=== PATIENT | female | born 1935 | race Caucasian/White ===

== ENCOUNTER 2017-02-11 11:48 | Emergency (ER) | payer MEDICARE, OTHER, BC ==
[~2017-02-11] VITALS: Ht 157.5 cm; Wt 79.5 kg
[~2017-02-11 11:48] MED LIST: ACYC800T PO; ASPI325T PO; ATEN1TAB75 PO; ATOR10 PO; CALCTAB32 PO; FLUR30CA12 PO; FOSA70TA PO; IRBE150T49 PO; OCUVTAB4 PO; TOBR3.5O LEFT EYE; VITA200017 PO; [UNRECOGNIZED DRUG - CODE] PO; [UNRECOGNIZED DRUG - OTHER] PO
[2017-02-11 12:07] VITALS: PULSE 74; RESP 18; O2SAT 96
--- NOTE | 2017-02-11 12:14 | PD ---
HPI Chief Complaint: Fall Time Seen by Provider: 12:14 Travel History International Travel<30 days: No Contact w/Intl Traveler<30days: No Traveled to known affect area: No History of Present Illness HPI 81-year-old female with history of CAD, hypertension, recurrent UTI, bilateral knee joint replacement, anxiety, depression, CVA, right sided facial twitch, presents to emergency department for evaluation following a slip and fall in the bathtub that occurred last evening. She had also had a trip and fall out of the car 2 days ago. She reports significant neck pain and states that her body overall aches. She has been ambulatory and is supposed inability with a walker however she refuses to do this most of the time. Patient did strike her head in the bathtub but did not lose consciousness. Her son was in the home and assisted her up. She reports abdominal pain as well as right sided chest pain, exacerbated with movement and deep inspiration. She also reports a thoracic spine pain exacerbated by movement. Pain is a constant, exacerbated with movement or palpation, 6 out of 10. No nausea or vomiting. No acute focal deficits or weakness. No other symptoms to report. PFSH Past Medical History Hx Anticoagulant Therapy: No Anxiety: Yes Depression: Yes Heart Rhythm Problems: Yes Cancer: Yes (L BREAST) Cardiovascular Problems: Yes High Cholesterol: Yes Chemotherapy: Yes Chest Pain: Yes Cerebrovascular Accident: Yes Diabetes: No Diminished Hearing: No Endocrine: No Gastrointestinal Disorders: Yes Genitourinary: Yes Hypertension: Yes Immune Disorder: No Implanted Vascular Access Dvce: Yes Musculoskeletal: No Neurologic: No Psychiatric: Yes Reproductive: No Respiratory: No Immunizations Current: Yes Radiation Therapy: Yes Ulcer: Yes Tetanus Vaccination: Unknown Menopausal: Yes Past Surgical History Cardiac Surgery: Yes (CYST REMOVED FROM [facility]) Gynecologic Surgery: Yes (SEMI MASTECTOMY LEFT) Hysterectomy: Yes Joint Replacement: Yes (BILATERAL KNEE, RIGHT HIP ) Neurologic Surgery: Yes (TWICHING LEFT SIDE OF FACE TREATED WITH BOTOX 2006) Other Surgery: Yes (L LUMPECTOMY, CYST REMOVED FROM [facility].) Social History Alcohol Use: Yes (OCC) Tobacco Use: No (QUIT DECADES AGO) Substance Use: No Allergies-Medications (Allergen,Severity, Reaction): Coded Allergies: No Known Allergies (Verified , 02/11/17) Reported Meds & Prescriptions Reported Meds & Active Scripts Active Percocet (Oxycodone-Acetaminophen) 5-325 mg Tab 0.5-1 Tab PO Q6H PRN Reported Tobradex Opht Oint (Tobramycin/Dexamethasone) 3.5 Applic/3.5 Gm Oint 1 Applic LEFT EYE HS Lipitor 10 mg tab (Atorvastatin) 10 Mg Tab 10 Mg PO HS Acyclovir 800 mg (Acyclovir) 800 Mg Tab 800 Mg PO DAILY [place] 30 mg (Flurazepam HCl) 30 Mg Cap 30 Mg PO HS Vitamin D3 Super Strength (Cholecalciferol) 2,000 Unit Tab 2,000 Unit PO DAILY [Blueberry Supplement] 1 Tab PO DAILY Aspirin 325 mg (Aspirin) 325 Mg Tab 325 Mg PO DAILY Moises Multivitamin For Wom (Multiple Vitamins W/ Minerals) Tab 1 Tab PO DAILY Fosamax (Alendronate Sodium) 70 Mg Tab 70 Mg PO WEEKLY WEEKLY ON MONDAYS Preservision Areds (Multivitamins/Minerals) Areds Tab 1 Tab PO DAILY Calcium Citrate + D (Calcium Citrate-Vitamin D) + D Tab 1 Tab PO BID Avapro (Irbesartan) 150 Mg Tab 150 Mg PO HS Tenormin (Atenolol) 100 Mg Tab 100 Mg PO HS Review of Systems Except as stated in HPI: all other systems reviewed are Neg Physical Exam Narrative GENERAL: Well-nourished female patient, very pleasant, sitting in bed, in no acute distress SKIN: Focused skin assessment warm/dry. Ecchymosis over the posterior neck. There is a skin tear on the right forearm, abrasion over the left forearm HEAD: Atraumatic. Normocephalic. EYES: Pupils equal and round. Cataract over the left eye. No scleral icterus. No injection or drainage. Patient does have left eye twitching. ENT: No nasal bleeding or discharge. Mucous membranes pink and moist. NECK: Trachea midline. No JVD. CARDIOVASCULAR: Regular rate and rhythm. 2/6 murmur appreciated. RESPIRATORY: No accessory muscle use. Clear to auscultation. Breath sounds equal bilaterally. No tenderness. Palpation of the thoracic cage. No crepitus. Even respirations. GASTROINTESTINAL: Abdomen soft, nondistended. Tenderness. Palpation of the right upper quadrant and left lower quadrant.. Hepatic and splenic margins not palpable. MUSCULOSKELETAL: No obvious deformities. No clubbing. No cyanosis. No edema. He can move all extremities without difficulty. No deformity. Distal pulses are palpable. NEUROLOGICAL: Awake and alert. No obvious cranial nerve deficits. Motor grossly within normal limits. Normal speech. PSYCHIATRIC: Appropriate mood and affect; insight and judgment normal. Data Data Last Documented VS Vital Signs Date Time Temp Pulse Resp B/P Pulse Ox O2 Delivery O2 Flow Rate FiO2 02/11/17 16:39 68 16 163/66 96 02/11/17 12:16 Room Air Orders Basic Metabolic Panel (Bmp) (02/11/17 12:12) Complete Blood Count With Diff (02/11/17 12:12) Prothrombin Time / Inr (Pt) (02/11/17 12:12) Act Partial Throm Time (Ptt) (02/11/17 12:12) Urinalysis - C+S If Indicated (02/11/17 12:12) Chest, Single Ap (02/11/17 12:12) Ct Brain W/O Iv Contrast(Rout) (02/11/17 12:12) Ct Cerv Spine W/O Contrast (02/11/17 12:12) Ct Abd/Pel W Iv Contrast(Rout) (02/11/17 12:12) Ct Thor Spine W/O Contrast (02/11/17 12:12) Electrocardiogram (02/11/17 12:12) Apply Cervical Collar (02/11/17 12:12) Iv Access Insert/Monitor (02/11/17 12:12) Ecg Monitoring (02/11/17 12:12) Oximetry (02/11/17 12:12) Morphine Inj (Morphine Inj) (02/11/17 14:30) Ondansetron Inj (Zofran Inj) (02/11/17 14:30) Iohexol 350 Inj (Omnipaque 350 Inj) (02/11/17 15:11) Collar [place] (02/11/17 ) Labs Laboratory Tests Test 02/11/17 02/11/17 12:20 15:30 White Blood Count 10.6 TH/MM3 Red Blood Count 3.69 MIL/MM3 Hemoglobin 12.4 GM/DL Hematocrit 35.7 % Mean Corpuscular Volume 96.6 FL Mean Corpuscular Hemoglobin 33.5 PG Mean Corpuscular Hemoglobin 34.6 % Concent Red Cell Distribution Width 13.3 % Platelet Count 190 TH/MM3 Mean Platelet Volume 9.3 FL Neutrophils (%) (Auto) 75.6 % Lymphocytes (%) (Auto) 15.0 % Monocytes (%) (Auto) 7.6 % Eosinophils (%) (Auto) 1.0 % Basophils (%) (Auto) 0.8 % Neutrophils # (Auto) 8.0 TH/MM3 Lymphocytes # (Auto) 1.6 TH/MM3 Monocytes # (Auto) 0.8 TH/MM3 Eosinophils # (Auto) 0.1 TH/MM3 Basophils # (Auto) 0.1 TH/MM3 CBC Comment DIFF FINAL Differential Comment Prothrombin Time 10.5 SEC Prothromb Time International 1.0 RATIO Ratio Activated Partial 26.4 SEC Thromboplast Time Sodium Level 134 MEQ/L Potassium Level 4.5 MEQ/L Chloride Level 99 MEQ/L Carbon Dioxide Level 26.5 MEQ/L Anion Gap 9 MEQ/L Blood Urea Nitrogen 21 MG/DL Creatinine 1.04 MG/DL Estimat Glomerular Filtration 51 ML/MIN Rate Random Glucose 110 MG/DL Calcium Level 9.2 MG/DL Urine Color LIGHT-YELLOW Urine Turbidity CLEAR Urine pH 7.0 Urine Specific [place] 1.006 Urine Protein NEG mg/dL Urine Glucose (UA) NEG mg/dL Urine Ketones NEG mg/dL Urine Occult Blood NEG Urine Nitrite NEG Urine Bilirubin NEG Urine Urobilinogen LESS THAN 2.0 MG/DL Urine Leukocyte Esterase TRACE Urine WBC 1 /hpf Urine Bacteria RARE /hpf Microscopic Urinalysis Comment CULT NOT INDICATED MDM Medical Decision Making Medical Screen Exam Complete: Yes Emergency Medical Condition: Yes Medical Record Reviewed: Yes Differential Diagnosis Contusion versus fracture versus intracranial hemorrhage versus visceral injury Narrative Course 81 year-old female presents to the emergency department for evaluation following a fall that occurred last night. This was a slip and fall in the shower. Patient appears without distress. She does have ecchymosis of her skull on his posterior neck. Tenderness with palpation cervical spine. Cervical collar is placed. Patient has no other focal deficits or weakness. CT imaging is ordered CBC is without acute concern. BMP is without acute concern. Urinalysis is unremarkable. 1425 Pt has been in ED now 2 hours and 21 minutes; CTs are still not complete. I have contacted CT and they state when they are finished with what they are currently doing, they will "see where they are at." Last Impressions Thoracic Spine CT 02/11/17 1212 Signed Impressions: Service Date/Time: Saturday, February 11, 2017 14:58 - CONCLUSION: 1. Moderate thoracic kyphosis with moderate to severe degenerative disc disease. No acute fracture or spondylolisthesis. No significant bony canal stenosis. Eliud Marie MD Head CT 02/11/172 Signed Impressions: Service Date/Time: Saturday, February 11, 2017 14:58 - CONCLUSION: Normal examination for a patient of this age. No significant change has occurred. Eliud Marie MD Chest X-Ray 02/11/171211 Signed Impressions: Service Date/Time: Saturday, February 11, 2017 12:15 - CONCLUSION: 1. Linear atelectasis or scarring at the left lung base. No pneumothorax. Eliud Marie MD Cervical Spine CT 02/11/171211 Signed Impressions: Service Date/Time: Saturday, February 11, 2017 14:58 - CONCLUSION: 1. No acute findings. Moderate degenerative disc disease and mild facet arthropathy in the cervical spine. Eliud Marie MD Abdomen/Pelvis CT 02/11/171211 Signed Impressions: Service Date/Time: Saturday, February 11, 2017 14:58 - CONCLUSION: 1. Small left pleural effusion. No acute findings within the abdomen or pelvis. Fatty liver. Colonic diverticula. Previous right hip replacement. Eliud Marie MD Left findings and radiologic findings are discussed with the patient and her family. They're comfortable calling Dr. Calles for follow-up this week. Patient is encouraged to utilize her walker with ambulation and she verbalizes understanding. Patient will be discharged at this time. Diagnosis Primary Impression: Cervical strain, acute Qualified Code: S16.1XXA - Cervical strain, acute, initial encounter Additional Impressions: Rib contusion Qualified Code: S20.219A - Rib contusion, unspecified laterality, initial encounter Abrasion forearm Strain of thoracic spine Qualified Code: S29.019A - Strain of thoracic spine, initial encounter Contusion Qualified Code: S00.03XA - Contusion of scalp, initial encounter Minor head injury without loss of consciousness Qualified Code: S09.90XA - Minor head injury without loss of consciousness, initial encounter Referrals: Primary Care Physician Patient Instructions: Cervical Neck Strain Exercises (GEN), General Instructions, Head Injury (ED), Thoracic Back Strain (ED) Additional Instructions: Ice and/or warm moist heat may help to alleviate symptoms Make sure to use or walker with ambulation No prolonged bedrest Contact her primary care provider and follow up with him this week Stool softener is recommended with narcotic pain control to reduce risk of constipation Return immediately to the emergency department with any acute worsening of symptoms Med/Other Pt SpecificInfo: Prescription(s) given Scripts Oxycodone-Acetaminophen (Percocet)5-325 mg Tab0.5-1 Tab PO Q6H PRN (PAIN GREATER THAN 5) #12 TAB Ref 0 Prov:Sabina Nair 02/11/17 Disposition: 01 DISCHARGE HOME Condition: Stable Sabina Nair Feb 11, 2017 12:14
[2017-02-11 12:16] VITALS: PULSE 80; O2SAT 98
[2017-02-11 12:39] LABS: BASOPHIL # 0.1 TH/MM3 (0-0.2); BASOPHIL % 0.8 % (0.0-2.0); EOSINOPHIL # 0.1 TH/MM3 (0-0.4); HEMATOCRIT 35.7 % (35.0-46.0); HEMO FLAGS DIFF FINAL; LYMPHOCYTE # 1.6 TH/MM3 (1.0-4.8); MEAN CELL VOLUME 96.6 FL (80.0-100.0); MEAN CORPUSCULAR HEMOGLOBIN 33.5 PG (27.0-34.0); MEAN CORPUSCULAR HGB CONC 34.6 % (32.0-36.0); MONO % 7.6 % (0.0-8.0); NEUT % 75.6 % (16.0-70.0); PLATELET COUNT 190 TH/MM3 (150-450); RED BLOOD COUNT 3.69 MIL/MM3 (4.00-5.30); RED CELL DISTRIBUTION WIDTH 13.3 % (11.6-17.2); WHITE BLOOD COUNT 10.6 TH/MM3 (4.0-11.0)
--- NOTE | 2017-02-11 12:40 | RADRPT ---
EXAM DATE/TIME: 02/11/2017 12:15 [facility] COMPARISON: CHEST PA & LAT, May 25, 2015, 10:35. INDICATIONS : Trauma, fall, neck and chest pain MEDICAL HISTORY : breast Ca SURGICAL HISTORY : Mastectomy, left ENCOUNTER: Initial ACUITY: 1 day PAIN SCORE: 2/10 LOCATION: Bilateral chest FINDINGS: There is linear atelectasis or scarring at the left lung base. No effusion. No pneumothorax. Heart si ze within normal limits. Tortuous aorta. Advanced osteoarthritis of the shoulders. Previous left clav icle fracture. CONCLUSION: 1. Linear atelectasis or scarring at the left lung base. No pneumothorax. Eliud Marie MD on February 11, 2017 at 12:36 Board Certified Radiologist. This report was verified electronically.
[2017-02-11 12:55] LABS: PROTHROMBIN TIME - PATIENT 10.5 SEC (9.8-11.6)
[2017-02-11 12:56] LABS: APTT (PATIENT) 26.4 SEC (24.3-30.1)
[2017-02-11 12:59] LABS: BICARBONATE 26.5 MEQ/L (21.0-32.0)
[2017-02-11 13:00] LABS: POTASSIUM 4.5 MEQ/L (3.5-5.1)
[2017-02-11] MEDS ORDERED: ONDANSETRON HCL 4 MG/2 ML VIAL IV PUSH ONE (14:30)
[2017-02-11] MEDS ORDERED: MORPHINE SULFATE 4 MG/ML INJ IV PUSH ONE (14:30)
[2017-02-11] MEDS ORDERED: IOHEXOL 350 MG/ML 10 ML VIAL (for RAD DIAG) IV ONE (15:11)
--- NOTE | 2017-02-11 15:25 | RADRPT ---
EXAM DATE/TIME: 02/11/2017 14:58 [facility] COMPARISON: CT BRAIN W/O CONTRAST, October 13, 2010, 16:37. INDICATIONS : Fall in bathtub,confusion unable to ambulate well since, pain uper back and right ribs RADIATION DOSE: 48.90 CTDIvol (mGy) MEDICAL HISTORY : Cardiovascular disease. Cerebrovascular disease. Hypertension.Left breast ca. chemo and rad therapy. SURGICAL HISTORY : None. ENCOUNTER: Initial ACUITY: 1 day PAIN SCALE: 0/10 LOCATION: cranial TECHNIQUE: Multiple contiguous axial images were obtained of the head. Using automated exposure control and adj ustment of the mA and/or kV according to patient size, radiation dose was kept as low as reasonably a chievable to obtain optimal diagnostic quality images. DICOM format image data is available electro nically for review and comparison. FINDINGS: CEREBRUM: The ventricles are normal for age. No evidence of midline shift, mass lesion, hemorrhage or acute in farction. No extra-axial fluid collections are seen. POSTERIOR FOSSA: The cerebellum and brainstem are intact. The 4th ventricle is midline. The cerebellopontine angle i s unremarkable. EXTRACRANIAL: The visualized portion of the orbits is intact. SKULL: The calvaria is intact. No evidence of skull fracture. CONCLUSION: Normal examination for a patient of this age. No significant change has occurred. Eliud Marie MD on February 11, 2017 at 15:22 Board Certified Radiologist. This report was verified electronically.
--- NOTE | 2017-02-11 15:28 | RADRPT ---
EXAM DATE/TIME: 02/11/2017 14:58 [facility] COMPARISON: No previous studies available for comparison. INDICATIONS : Fell in bath tub, confusion, loss of ability to walk, right rib pain. RADIATION DOSE: 21.44 CTDIvol (mGy) MEDICAL HISTORY : Cerebrovascular disease. Cerebrovascular disease. Ca breast with chemo and rad therapy. SURGICAL HISTORY : Hysterectomy. ENCOUNTER: Initial ACUITY: 1 day PAIN SCALE: 0/10 LOCATION: Bilateral neck TECHNIQUE: Volumetric scanning of the cervical spine was performed. Multiplanar reconstructions in the sagittal, coronal and oblique axial planes were performed. Using automated exposure control and adjustment o f the mA and/or kV according to patient size, radiation dose was kept as low as reasonably achievable to obtain optimal diagnostic quality images. DICOM format image data is available electronically f or review and comparison. FINDINGS: VERTEBRAE: Normal vertebral body height. ALIGNMENT: No evidence of subluxation. C2-C3: The bony spinal canal is normal in size. No evidence of disc bulge or herniation. The neural forami na are bilaterally patent. C3-C4: The bony spinal canal is normal in size. No evidence of disc bulge or herniation. The neural forami na are bilaterally patent. C4-C5: The bony spinal canal is normal in size. No evidence of disc bulge or herniation. The neural forami na are bilaterally patent. C5-C6: The bony spinal canal is normal in size. No evidence of disc bulge or herniation. The neural forami na are bilaterally patent. C6-C7: The bony spinal canal is normal in size. No evidence of disc bulge or herniation. The neural forami na are bilaterally patent. C7-T1: The bony spinal canal is normal in size. No evidence of disc bulge or herniation. The neural forami na are bilaterally patent. CONCLUSION: 1. No acute findings. Moderate degenerative disc disease and mild facet arthropathy in the cervical s pine. Eliud Marie MD on February 11, 2017 at 15:23 Board Certified Radiologist. This report was verified electronically.
--- NOTE | 2017-02-11 15:32 | RADRPT ---
EXAM DATE/TIME: 02/11/2017 14:58 [facility] COMPARISON: No previous studies available for comparison. INDICATIONS : Fall in bath tub, confusion, loss of ability to walk, right rib pain. IV CONTRAST: 100 cc Omnipaque 350 (iohexol) IV ORAL CONTRAST: No oral contrast ingested. RADIATION DOSE: 12.45 CTDIvol (mGy) MEDICAL HISTORY : Cardiovascular disease. Cerebrovascular disease. Hypertension.ca breast with chemo and rad therapy. SURGICAL HISTORY : Hysterectomy. ENCOUNTER: Initial ACUITY: 1 day PAIN SCALE: 6/10 LOCATION: Right lower chest TECHNIQUE: Volumetric scanning of the abdomen and pelvis was performed. Using automated exposure control and ad justment of the mA and/or kV according to patient size, radiation dose was kept as low as reasonably achievable to obtain optimal diagnostic quality images. DICOM format image data is available electro nically for review and comparison. FINDINGS: There is a small left-sided pleural effusion. Minimal basilar atelectasis or scarring. Mild fatty liver. Spleen, adrenals, kidneys and pancreas unremarkable. No gallstones or biliary ducta l dilatation identified. There are scattered colonic diverticula without evidence for diverticulitis. There is previous right hip replacement. No bowel obstruction free fluid or free air. Previous hysterectomy. CONCLUSION: 1. Small left pleural effusion. No acute findings within the abdomen or pelvis. Fatty liver. Colonic diverticula. Previous right hip replacement. Eliud Maire MD on February 11, 2017 at 15:25 Board Certified Radiologist. This report was verified electronically.
[2017-02-11 15:53] VITALS: BP 145/67; PULSE 66; RESP 18; O2SAT 94
--- NOTE | 2017-02-11 15:59 | RADRPT ---
EXAM DATE/TIME: 02/11/2017 14:58 [facility] COMPARISON: No previous studies available for comparison. INDICATIONS : Fall in bath tub, confused, loss of ability to ambulate, right rib pain. RADIATION DOSE: 16.80 CTDIvol (mGy) MEDICAL HISTORY : Cardiovascular disease. Cerebrovascular disease. Hypertension.ca breast with chemo, and rad therapy. SURGICAL HISTORY : Hysterectomy. ENCOUNTER: Initial ACUITY: 1 day PAIN SCALE: 6/10 LOCATION: Right upper back TECHNIQUE: Volumetric scanning of the thoracic spine was performed. Multiplanar reconstructions in the sagittal , coronal and oblique axial planes were performed. Using automated exposure control and adjustment o f the mA and/or kV according to patient size, radiation dose was kept as low as reasonably achievable to obtain optimal diagnostic quality images. DICOM format image data is available electronically f or review and comparison. FINDINGS: There is a moderate thoracic kyphosis and moderate to severe degenerative disc disease in the thoraci c spine. No fracture or spondylolisthesis. There is no significant bony canal stenosis but no direct nerve root compression is seen. Baby A is a small left effusion and trace right pleural fluid. CONCLUSION: 1. Moderate thoracic kyphosis with moderate to severe degenerative disc disease. No acute fracture or spondylolisthesis. No significant bony canal stenosis. Eliud Marie MD on February 11, 2017 at 15:54 Board Certified Radiologist. This report was verified electronically.
[2017-02-11] MEDS ORDERED: PERC5TAB12 PO (16:17)
[2017-02-11 16:19] LABS: BACTERIA, URINE RARE /hpf; BLOOD, URINE NEG (NEG); COMMENT (UR) CULT NOT INDICATED; CULTURE IF INDICATED CULT NOT INDICATED; GLUCOSE,URINE NEG (NEG); KETONE, URINE NEG (NEG); NITRITE,URINE NEG (NEG); URINE COLOR LIGHT-YELLOW (YELLW/STRAW)
[2017-02-11 16:39] VITALS: BP 163/66
--- NOTE | 2017-02-12 14:25 | EKG ---
Date Performed: 02/11/2017 Time Performed: 12:25:04 PTAGE: 81 years EKG: Sinus rhythm Since previous tracing, no significant change noted NORMAL ECG PREVIOUS TRACING : 05/25/2015 10.05 DOCTOR: Luis Agrawal Interpretating Date/Time 02/12/2017 14:25:01
== END 2017-02-11 16:51 | disposition home or self-care (01) ==
LOC: NEPC 11:48
DX: S16.1XXA Strain of muscle, fascia and tendon at neck level, initial encounter (principal); S29.012A Strain of muscle and tendon of back wall of thorax, initial encounter; S00.03XA Contusion of scalp, initial encounter; S20.219A Contusion of unspecified front wall of thorax, initial encounter; S50.812A Abrasion of left forearm, initial encounter; S51.811A Laceration without foreign body of right forearm, initial encounter; I10 Essential (primary) hypertension; W18.2XXA Fall in (into) shower or empty bathtub, initial encounter; Y92.002 Bathroom of unspecified non-institutional (private) residence as the place of occurrence of the external cause; Z87.891 Personal history of nicotine dependence
CPT/HCPCS: 70450; 71010; 72125; 72128; 74177; 80048; 81001; 85025; 85610; 85730; 93005; 96374; 96375; 99285; J2270; J2405; L0150; Q9967

== ENCOUNTER → 2017-02-28 | Outpatient (CLI) | payer MEDICARE, BC ==
[~2017-02-28] MED LIST changes: +PERC5TAB12 PO
[2017-02-28 08:08] LABS: FIO2 21 %; OXIMETRY 96 % (90-100)
--- NOTE | 2017-03-05 12:33 | RSPPFT ---
DATE OF PROCEDURE: 02/28/17 COMMENTS: Spirometry with FVC of 1.2 predicted 2.1, FEV1 of 0.9 predicted 1.5, FEV1/FVC ratio 73% predicted 82%. Post-bronchodilator FVC increases to 1.7 and FEV1 to 1.2. There is increased air trapping with RV at 3.1 predicted 2.2. DLCO is 85% of predicted. IMPRESSION: On the basis of the above, the flow volume loop suggests obstructive lung defect with responsiveness to acutely inhaled bronchodilator. Air trapping is present.
== END ==
LOC: HRSP 02-21 11:40
PROVIDERS: ATTEND Family Medicine
DX: R06.2 Wheezing (principal)
CPT/HCPCS: 94060; 94726; 94729; 94760

== ENCOUNTER 2017-09-02 10:12 | Emergency (ER) | payer MEDICARE, BC ==
[~2017-09-02] VITALS: Ht 154.9 cm; Wt 79.1 kg
[2017-09-02 10:18] VITALS: BP 140/65; PULSE 67; RESP 20; TEMP 98.1; O2SAT 96
[2017-09-02] MEDS ORDERED: ACYC800T PO (10:42)
[2017-09-02] MEDS ORDERED: ATOR10TA15 PO (10:42)
[2017-09-02] MEDS ORDERED: ATEN100T PO (10:42)
[2017-09-02] MEDS ORDERED: CALC1TAB87 PO (10:42)
[2017-09-02] MEDS ORDERED: TOBRSUS9 LEFT EYE (10:42)
[2017-09-02] MEDS ORDERED: ASPI-516 CHEW (10:42)
[2017-09-02] MEDS ORDERED: FLUR30CA12 (10:42)
[2017-09-02] MEDS ORDERED: OCUVTAB4 PO (10:42)
[2017-09-02] MEDS ORDERED: MULTTAB67 PO (10:42)
[2017-09-02] MEDS ORDERED: IRBE150T15 PO (10:42)
[2017-09-02] MEDS ORDERED: VITA2000 PO (10:42)
[2017-09-02] MEDS: RESP: ALBUTEROL 2.5 MG/IPRATROPIUM 0.5 MG NEB (SCH) INH (10:43)
[2017-09-02] MEDS ORDERED: methylPREDNISolone SOD SUCC 125 MG/2 ML VIAL IV PUSH ONE (10:45)
[2017-09-02] MEDS ORDERED: SODIUM CHLORIDE 0.9% FLUSH 10 ML FLUSH IVF PRN (10:45)
--- NOTE | 2017-09-02 10:48 | PD ---
HPI . Shortness of breath Chief Complaint: Respiratory Symptoms Time Seen by Provider: 10:27 Travel History International Travel<30 days: No Contact w/Intl Traveler<30days: No Traveled to known affect area: No History of Present Illness HPI This patient presents with a cough and chest congestion. Onset was a week ago. It is getting progressively worse. She has had sputum but no fever. She has developed audible wheezing. She has not noted any modifying factors. History of lung disease. PFSH Past Medical History Hx Anticoagulant Therapy: No Anxiety: Yes Depression: Yes Heart Rhythm Problems: Yes Cancer: Yes (L BREAST) Cardiovascular Problems: Yes (htn on meds) High Cholesterol: Yes Chemotherapy: Yes Chest Pain: Yes Cerebrovascular Accident: Yes (tia) Diabetes: No Diminished Hearing: No Endocrine: No Gastrointestinal Disorders: Yes Genitourinary: Yes Hypertension: Yes Immune Disorder: No Implanted Vascular Access Dvce: Yes Musculoskeletal: No Neurologic: No Psychiatric: Yes Reproductive: No Respiratory: No Immunizations Current: Yes Radiation Therapy: Yes Ulcer: Yes ?: Not Menopausal: Yes Past Surgical History Cardiac Surgery: Yes (CYST REMOVED FROM [facility]) Gynecologic Surgery: Yes (SEMI MASTECTOMY LEFT) Hysterectomy: Yes Joint Replacement: Yes (BILATERAL KNEE, RIGHT HIP ) Neurologic Surgery: Yes (TWICHING LEFT SIDE OF FACE TREATED WITH BOTOX 2006) Other Surgery: Yes (L LUMPECTOMY, CYST REMOVED FROM [facility].) Social History Alcohol Use: Yes (OCC) Tobacco Use: No (QUIT DECADES AGO) Substance Use: No Allergies-Medications (Allergen,Severity, Reaction): Coded Allergies: No Known Allergies (Verified Adverse Reaction, Unknown, 09/02/17) Reported Meds & Prescriptions Reported Meds & Active Scripts Active Reported Tobramycin-Dexamethasone Opth Drops 0.3-0.1 % Susp 1 Drop LEFT EYE QID Atorvastatin (Atorvastatin Calcium) 10 Mg Tab 10 Mg PO HS Acyclovir 800 Mg Tab 800 Mg PO HS Flurazepam (Flurazepam HCl) 30 Mg Cap Irbesartan 150 Mg Tab 150 Mg PO DAILY Atenolol 100 Mg Tab 100 Mg PO DAILY Vitamin D3 (Cholecalciferol) 2,000 Unit Cap 2,000 Units PO DAILY Multiple Vitamin 1 Tab 1 Tab PO DAILY Preservision Areds (Multiple Vitamins W/ Minerals) 1 Tab 1 Tab PO DAILY Calcium 600 with Vitamin D (Calcium Carbonate-Cholecalciferol) 600-400 mg-Unit Tab 1 Tab PO DAILY Aspirin 81 Mg Chew 81 Mg CHEW DAILY [Blueberry Supplement] 1 Tab PO DAILY Review of Systems Except as stated in HPI: all other systems reviewed are Neg General / Constitutional: No: Fever, Chills Respiratory: Positive: Cough, Shortness of Breath, Wheezing Physical Exam Narrative GENERAL: Awake and alert and in no acute distress. SKIN: Warm and dry. Good color and turgor. HEAD: Normocephalic/atraumatic. EYES: Pupils are equal. Extraocular movements are intact. NECK: Normal range of motion. CARDIOVASCULAR: Regular rate and rhythm. Heart sounds are normal. RESPIRATORY: Nonlabored respirations. Audible wheezing. Diffuse coarse inspiratory and expiratory wheezing on auscultation. MUSCULOSKELETAL: Atraumatic. NEUROLOGICAL: Nonfocal. PSYCHIATRIC: Appropriate mood and affect. Data Data Last Documented VS Vital Signs Date Time Temp Pulse Resp B/P (MAP) Pulse Ox O2 Delivery O2 Flow Rate FiO2 09/02/17 11:00 69 20 149/66 (93) 94 Room Air 09/02/17 10:18 98.1 Orders Orders Basic Metabolic Panel (Bmp) (09/02/17 10:31) Complete Blood Count With Diff (09/02/17 10:31) Blood Culture (09/02/17 10:31) Chest, Pa & Lat (09/02/17 10:31) Iv Access Insert/Monitor (09/02/17 10:31) Sodium Chloride 0.9% Flush (Ns Flush) (09/02/17 10:45) Albuterol-Ipratropium Neb (Duoneb Neb) (09/02/17 10:45) Methylprednisolone So Succ Inj (Solumedr (09/02/17 10:45) Resp Incentive Spirometry (09/02/17 ) Labs Laboratory Tests Test 09/02/17 10:50 White Blood Count 6.0 TH/MM3 Red Blood Count 4.05 MIL/MM3 Hemoglobin 12.9 GM/DL Hematocrit 39.2 % Mean Corpuscular Volume 96.9 FL Mean Corpuscular Hemoglobin 31.7 PG Mean Corpuscular Hemoglobin Concent 32.7 % Red Cell Distribution Width 12.5 % Platelet Count 178 TH/MM3 Mean Platelet Volume 8.4 FL Neutrophils (%) (Auto) 65.1 % Lymphocytes (%) (Auto) 22.9 % Monocytes (%) (Auto) 8.8 % Eosinophils (%) (Auto) 2.9 % Basophils (%) (Auto) 0.3 % Neutrophils # (Auto) 3.9 TH/MM3 Lymphocytes # (Auto) 1.4 TH/MM3 Monocytes # (Auto) 0.5 TH/MM3 Eosinophils # (Auto) 0.2 TH/MM3 Basophils # (Auto) 0.0 TH/MM3 CBC Comment DIFF FINAL Differential Comment Blood Urea Nitrogen 18 MG/DL Creatinine 1.10 MG/DL Random Glucose 100 MG/DL Calcium Level 9.2 MG/DL Sodium Level 137 MEQ/L Potassium Level 4.3 MEQ/L Chloride Level 99 MEQ/L Carbon Dioxide Level 33.6 MEQ/L Anion Gap 4 MEQ/L Estimat Glomerular Filtration Rate 47 ML/MIN MDM Medical Decision Making Medical Screen Exam Complete: Yes Emergency Medical Condition: Yes Differential Diagnosis Differential diagnosis includes but is not limited to viral respiratory illness , bronchitis, pneumonia, allergies, CHF, asthma/COPD. Narrative Course This patient presents with cough and wheezing. It sounds like bronchitis. She will be given nebulizer treatments and Solu-Medrol. Chest x-ray and lab work is pending to rule out pneumonia. CBC & BMP Diagram 09/02/17 10:50 Calcium Level 9.2 Chest x-ray shows no acute disease. The chest x-ray was independently viewed by me. The patient will be discharged to home with treatment for bronchitis including steroids and albuterol. Diagnosis Primary Impression: Bronchitis Patient Instructions: Acute Bronchitis (DC), General Instructions Med/Other Pt SpecificInfo: Prescription(s) given Scripts Promethazine-Codeine Liq (Promethazine-Codeine Liq) 6.25-10 Mg/5 Ml Syrp 10 ML PO Q6H Y for COUGH AND/OR COLD SYMPTOMS, #120 ML 0 Refills Prov: Pauline Junior MD 09/02/17 Albuterol 18 GM Inh (Ventolin Hfa 18 GM Inh) 90 Mcg/Act Aer 2 PUFF INH Q4H Y for SHORTNESS OF BREATH, #1 INHALER 0 Refills Prov: Pauline Junior MD 09/02/17 Prednisone (Prednisone) 20 Mg Tab 60 MG PO DAILY for Inflammation for 5 Days, #15 TAB 0 Refills 40 MG twice a day x 3 days, then 20 MG daily x 3 days, then 10 MG daily x 3 days Prov: Pauline Junior MD 09/02/17 Disposition: 01 DISCHARGE HOME Condition: Stable Pauline Junior MD Sep 02, 2017 10:47
[2017-09-02 11:00] VITALS: BP 149/66; PULSE 69; RESP 20; O2SAT 94
[2017-09-02 11:01] LABS: AUTOMATED NEUTROPHIL # 3.9 TH/MM3 (1.8-7.7); BASOPHIL % 0.3 % (0.0-2.0); EOSINOPHIL # 0.2 TH/MM3 (0-0.4); EOSINOPHIL % 2.9 % (0.0-4.0); HEMATOCRIT 39.2 % (35.0-46.0); HEMOGLOBIN 12.9 GM/DL (11.6-15.3); LYMPH % 22.9 % (9.0-44.0); LYMPHOCYTE # 1.4 TH/MM3 (1.0-4.8); MEAN CELL VOLUME 96.9 FL (80.0-100.0); MEAN CORPUSCULAR HEMOGLOBIN 31.7 PG (27.0-34.0); MEAN CORPUSCULAR HGB CONC 32.7 % (32.0-36.0); MEAN PLATELET VOLUME 8.4 FL (7.0-11.0); MONO % 8.8 % (0.0-8.0); MONOCYTE # 0.5 TH/MM3 (0-0.9); NEUT % 65.1 % (16.0-70.0); PLATELET COUNT 178 TH/MM3 (150-450); RED BLOOD COUNT 4.05 MIL/MM3 (4.00-5.30); RED CELL DISTRIBUTION WIDTH 12.5 % (11.6-17.2)
[2017-09-02 11:12] LABS: BICARBONATE 33.6 MEQ/L (21.0-32.0); CALCIUM 9.2 MG/DL (8.5-10.1)
[2017-09-02 11:16] LABS: CREATININE 1.1 MG/DL (0.50-1.00)
--- NOTE | 2017-09-02 11:48 | RADRPT ---
EXAM DATE/TIME: 09/02/2017 11:25 [facility] COMPARISON: CHEST SINGLE AP, February 11, 2017, 12:15. INDICATIONS : Short of breath, cough MEDICAL HISTORY : Carcinoma, breast. SURGICAL HISTORY : Mastectomy, left. Removal of tumor in chest ENCOUNTER: Initial ACUITY: 1 week PAIN SCORE: 0/10 LOCATION: Bilateral chest FINDINGS: The lungs are clear without infiltrate, nodule, or mass. There is no appreciable pleural effusion fo r technique. Heart and mediastinum are unremarkable. Chronic degenerative changes are present in rakesh ateral shoulders. Degenerative changes and hypertrophic changes are seen within the disc space and fa cets of the thoracic spine. 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 CONCLUSION: No acute cardiopulmonary disease. Nasra Dominguez MD on September 02, 2017 at 11:45 Board Certified Radiologist. This report was verified electronically.
[2017-09-02] MEDS ORDERED: VENTAER INH (11:58)
[2017-09-02] MEDS ORDERED: PRED20 PO (11:58)
[2017-09-02] MEDS ORDERED: PROM6.256 PO (11:58)
[2017-09-02 12:26] VITALS: BP 140/69
== END 2017-09-02 12:26 | disposition home or self-care (01) ==
LOC: PHED 10:12
DX: J40 Bronchitis, not specified as acute or chronic (principal); I10 Essential (primary) hypertension; E78.00 Pure hypercholesterolemia, unspecified
CPT/HCPCS: 71046; 80048; 85025; 87040; 94150; 94640; 94664; 96374; 99284; J2930